=== PATIENT | female | born 1990 | race Caucasian/White ===

== ENCOUNTER 2023-06-01 10:38 | Outpatient (CLI) | payer OTHER, SELFPAY ==
--- NOTE | 2023-06-01 11:00 | US_ITS ---
Final Report Patient: SAUL PATEL Facility:?[facility] Patient ID:?[id number] Site Patient ID:?[id number]. Site :?1989 Study:?US OB Pelvis BFAS-06/01/2023 11:32:40 AM Ordering Physician:MELINDA MARTINEZ Final Report: INDICATION: Evaluate anatomy. COMPARISON: none TECHNIQUE: Real time dominguez scale imaging of the fetus was performed as well as color Doppler analysis of the umbilical vessels. FINDINGS: Sonographic imaging demonstrates a single living intrauterine gestation. Fetus demonstrates a regular cardiac rate of 144 beats per minute. Fetus has a variable position. The placenta lies anteriorly without evidence of placenta previa. Placental edge is 8.8 cm from the internal cervical os. Amniotic fluid volume appears normal. Single deepest vertical pocket: 4.1 cm. The cervix is closed and measures 4.8 cm in length. The composite ultrasound gestational age is calculated at 21 weeks 2 days with an estimated sonographic due date of 10/10/2023. The estimated weight is 432 grams which lies at the 91st %. The following biometric measurements were obtained: Biparietal diameter: 4.8 cm/20 weeks 3 day 44th% Head circumference: 18.9 cm/21 weeks 1 day 68th% Abdominal circumference: 17.0 cm/22 weeks 0 day 86th% Femur length: 3.5 cm/21 weeks 1 day 64th% The HC/AC ratio measures: 1.11 range (1.06-1.24) On anatomic survey, there is a normal appearance of the cerebral ventricles, cavum septi pellucidi, cisterna magna and cerebellum. The nose, lips, and facial profile appear normal. The cervical, thoracic and lumbar spine are well visualized and appear normal. There is a normal four-chamber heart view and the left and right ventricular outflow tracts appear normal. The diaphragm and stomach appear normal. The kidneys and bladder also appear normal. There is a normal three-vessel cord and there is an eccentric cord insertion site. The four extremities appear normal. IMPRESSION: Normal OB ultrasound exam with concordance of clinical and sonographic dating. No intrinsic abnormalities noted on anatomic survey. Dictated by Doug Lopez MD @ 06/01/2023 11:44:22 AM (Electronic Signature
== END 2023-06-01 10:39 | disposition home or self-care (01) ==
LOC: US 10:39
PROVIDERS: Visit Provider Advanced Practice Midwife
DX: Z34.92 Encounter for supervision of normal pregnancy, unspecified, second trimester (principal); Z3A.20 20 weeks gestation of pregnancy
CPT/HCPCS: 76805

== ENCOUNTER 2023-07-22 08:05 | Outpatient (CLI) | payer OTHER, SELFPAY | END 2023-07-22 08:06 | disposition home or self-care (01) | LOC: NFLDREF 07-23 07:18 | PROVIDERS: Visit Provider Advanced Practice Midwife | DX: Z34.91 Encounter for supervision of normal pregnancy, unspecified, first trimester (principal) | CPT/HCPCS: 86592; 86787; 86803 ==

== ENCOUNTER 2023-07-23 07:59 | Outpatient (CLI) | payer OTHER, SELFPAY | END 2023-07-23 08:00 | disposition home or self-care (01) | LOC: NFLDREF 07-24 08:26 | PROVIDERS: Visit Provider Advanced Practice Midwife | DX: O99.810 Abnormal glucose complicating pregnancy (principal) | CPT/HCPCS: 82951; 82952 ==

== ENCOUNTER 2023-09-16 11:17 | Outpatient (CLI) | payer OTHER, SELFPAY | END 2023-09-16 11:18 | disposition home or self-care (01) | LOC: NFLDREF 09-23 14:17 | PROVIDERS: Visit Provider Advanced Practice Midwife | DX: Z34.83 Encounter for supervision of other normal pregnancy, third trimester (principal) | CPT/HCPCS: 87081; 87653 ==

== ENCOUNTER 2023-10-22 07:25 | Inpatient (IN) | payer OTHER, SELFPAY ==
[2023-10-22] VITALS (14 sets, daily range): BP systolic 95–131; BP diastolic 54–87; PULSE 65–86; RESP 16–17; TEMP 36.4–37.1; O2SAT 94–96
--- OUTSIDE RECORDS SUMMARY | 2023-10-22 05:39 | XMS_ITS | Clinical Summary ---
Author Organization [facility] Address [place], [place] [address] Care Team Providers Care Accountant Manager Name Role Phone Adan Teague MD Primary Care Provider [phone] Allergies No known active allergies Medications Medication Sig Dispensed Refills Start Date End Date Status VIT CALC,IRON,FOLIC ( VITAMIN ORAL) Take 1 Tab by mouth. Active cholecalciferol (VITAMIN D3) 5,000 unit capsule Take 1 Capsule (5,000 units) by mouth once daily. 40 units = 1 mcg (5000 units = 125 mcg) 0 07/01/2021 Active Active Problems Problem Noted Date Diagnosed Date Obesity in 07/10/2021 Female infertility associated with anovulation 0 07/10/2021 High-risk in first trimester Overview: HIGH RISK: PCOS: conceived with ART, letrozole and IUI Early GCT 134 Hx of Shoulder Dystocia: ~15 seconds, resolved with suprapubic and Orestes Early GCT 134 Consider growth us Offer primary c/s Hx of macrosomal infant (9lb 14oz): A1c with NOB labs 5.5 early GCT 134 Pre- BMI 39 Weight gain 11-20lbs Early GCT 134 Level II US Growth US third trimester Supervision of res ulting from assisted reproductive technology, antepartum 07/09/2021 History of delivery of macrosomal 022 History of shoulder dystocia in prior 07/09/2021 PCOS (polycystic ovarian syndrome) 07/09/2021 Resolved Problems Problem Noted Date Diagnosed Date Resolved Date High risk due to a ssisted reproductive technology 07/09/2021 07/09/2021 (spontaneous vaginal delivery) 07/23/2018 07/09/2021 Supervision of normal 12/14/2017 07/08/2021 Overview: Provider: Adan Teague MD Last delivery had 9 lb 13 oz baby, short second stage and no tears. Induced at 42 weeks. A Rh Positive BOY FOB: Piter. Daughter: [place] (2) pain management: would like to avoid an epidural, but did have this with her last . NO consent signed. Circumcision: not planning Breastplanning: does not need pump. Planning on having a Armature [employer] (Ashley). control: unsure, didn't like paragard in the past. Planning more kids Right upper quadrant abdominal pain 11/01/2015 11/13/2017 Calculus of gallbladder 11/01/201511/28 Normal vaginal delivery 11/01/201510/28 Overview: 09/2015 Total bilirubin, elevated 11/01/2015 Elevated transaminase level 11/01/2015 11/13/2017 Elevated alkaline phosphatase level 11/01/2015 11/13/2017 Immunizations Name Administration Dates Next Due Hepatitis A (Peds) 06/23/2008,10/12/2007 Human Papilloma Virus Vaccine 06/23/2008, 008,10/12/2007 Influenza, IIV4 01/31/2019,12/14/2017 Meningococcal Vaccine (Menactra) 10/12/2007 Tdap 04/14/2018,10/12/2007 Family History Medical History Relation Name Comments Good Health Brother Hypertension Father Cancer Maternal Grandfather Suicide Attempts Maternal Grandmother Good Health Mother Suicide Attempts Paternal Grandfather Cancer-breast Paternal Grandmother Good Health Paternal Grandmother Good Health Sister defects No Family History Cancer-ovarian No Family History Chromosomal disorder No Family History Miscarriages / Stillbirths No Family History Preeclampsia No Family History Uterine cancer No Family History Relation Name Status Comments Brother Alive Father Alive Maternal Grandfather Maternal Grandmother Mother Alive Paternal Grandfather Paternal Grandmother Alive Sister Alive Social History Tobacco Use Types Packs/Day Years Used Date Smoking Tobacco: Never Smokeless Tobacco: Never Tobacco Cessation:Counseling Given: Yes Alcohol Use Standard Drinks/Week Comments No 0 (1 standard drink = 0.6 oz pur e alcohol) PHQ-2 Answer Date Recorded PHQ-2 TOTAL SCORE 0 07/01/2021 Social Connections Answer Date Recorded Frequency of Communication with Friends and Fami ly Not on file 03/30/2021 Financial Resource Strain Answer Date R ecorded Difficulty of Paying Living Expenses Not on file 03/30/2021 Difficulty of Paying Living Expenses Not on file 03/30/2021 Sex and Gender Information Value Date Recorded Sex Assigned at Not on file Gender Identity Not on file Sexual Orientation Not on file Obstetrics History Para Term AB IAB SAB Ectopic Multiple Livin g Live Births 3 2 2 1 1 Date Outcome GA Total Labor Labor//3rd Weight Sex Type Anes PTL Ellen A1 A5 Name Clin 2015 Term 42w 1d 4.45 kg (9 lb 13 oz) F VAGINA L BEAU Epidur al Livin g 8 8 Adrian w Penelope kenzie Knight ri, CNM Complications:Premature rupt ure of membranes Delivery Location:[facility] Comments:Transferred f [facility] for PROM at 42 weeks. Pit IOL, nitrous and epidural. Compound presentation of both hands at face. 2nd degree lac, repaired. QBL 406 2018 Term 41w 4d 0h 07m/0h 02m 4.48 kg (9 lb 14 oz) M VAGINA L BEAU None 8 9 [place] a Complications:Shoulder Dysto anshu Delivery Location:[facility] (UTD 1999 MB L&D TRIAGE) Comments:post dates IO L. 1 dose miso. No meds, SROM. 15 second shoulder dystocia, resolved with Orestes and suprapubic. Nuchal x1. QBL 200 Last Filed Vital Signs Vital Sign Reading Time Taken Comments Blood Pressure 122/81 07/01/2021 2:13 PM CDT Pulse 92 07/01/2021 2:13 PM CDT Temperature 37.2 ??C (99 ??F) 02/03/2019 9:15 AM SALES REPRESENTATIVE [employer] Respiratory Rate 20 02/03/2019 9:15 AM SALES REPRESENTATIVE [employer] Oxygen Saturation 98% 02/03/2019 9:15 AM SALES REPRESENTATIVE [employer] Inhaled Oxygen Concentration - - Weight 110.6 kg (243 lb 12.8 oz) 07/01/2021 2:13 PM CDT Height 166.9 cm (5' 5.71) 07/01/2021 2:13 PM CD T Body Mass Index 39.7 07/01/2021 2:13 PM CDT Plan of Treatment Health Maintenance Due Date Last Done Comments Pap test for age 21-65 12/14/2020 12/14/2017 BMI (ht and wt on same day) for age 18+ 07/01/2022 07/01/2021, 01/19/2020, 09/13/2018, Additional history exists Depression screening for age 12+ 07/01/2022 07/01/2021, 01/19/2020, 09/13/2018, Additional history exists COVID-19 vaccine series ( season) 2022 Influenza for age 9-49 11/29/2023 01/31/2019, 2017 Tetanus booster 04/14/2028 04/14/2018, 10/12/2007 Tdap Completed 04/14/2018, 10/12/2007 HIV for age 15-65 Completed 07/01/2021, 11/13/2017 Hepatitis C screening for age 18-79 Completed 07/01/2021 Pneumococcal series for age 6-64 Aged Out No longer eligible based on patient's age to complete this topic Procedures Procedure Name Priority Date/Time Associated Diagnosis Comments ANTI HIV 1/2 Routine 07/01/2021 4:32 PM CDT High-risk , first trimester ANTI HCV Routine 07/01/2021 4:32 PM CDT High-risk , first trimester SQL REPORT WRITER THIN PREP PAP SCREEN IMAGED Routine 12/14/2017 6:11 PM CDT Encounter for supervision of other normal in first trimester from Last 3 Months or Most Recently Relevant to Health Maintenance Results * ANTI HCV (07/01/2021 4:32 PM CDT) HEPATITIS C ANTIBODY Non-React leander Non-React leander 07/01/2021 10:44 PM CDT [facility] Comment:Antibodies to HCV no t detected; does not exclude the possibility of exposure to HCV. Blood BLOOD SPECIMEN / Unknown Venipuncture / Unknown 07/01/2021 4:32 PM CDT 07/01/2021 4:32 PM CDT Evita VICTORIA SEND OUTS Performing Organization Address City/[facility] Co de Phone Number [facility] [address] [place] [address], * ANTI HIV 1/2 (07/01/2021 4:32 PM CDT) [facility] HIV-1/HIV-2 ANTIBODY Non-Reacti ve Non-Reacti ve 07/01/2021 10:10 PM CDT [facility] Comment:HIV-1 p24 and HIV-1/ HIV-2 Ab not detected. Blood BLOOD SPECIMEN / Unknown Venipuncture / Unknown 07/01/2021 4:32 PM CDT 07/01/2021 4:32 PM CDT [employer] VICTORIA SEND OUTS Performing Organization Address [facility] Co de Phone Number [facility] [address] [place] [address], * SQL REPORT WRITER THIN PREP PAP SCREEN IMAGED (12/14/2017 6:11 PM CDT) [facility] Case Report Gynecologic Cytology Report ? Case: [id number] ? Authorizing Provider: ??Adan Teague MD ?Collected: ? 12/14/2017 1811 ? Ordering Location: ? [facility] Received: ?12/14/2017 1829 ? First Screen: ?Rose Espino ? Specimen: ?SQL REPORT WRITER ThinPrep Vial Screening, Cervical ? 12/25/2017 9:15 AM CDT [facility] INTERPRETATION/ RESULT NEGATIVE FOR INTRAEPITHELIAL LESION OR MALIGNANCY (NIL) (none) 12/25/2017 9:15 AM CDT [facility] IMEN ADEQUACY Satisfactory for evaluation Endocervical component present 12/25/2017 9:15 AM CDT [facility] HPV REQUEST HPV if ASCUS 12/25/2017 9:15 AM CDT [facility] Date of LMP 09/16/17 12/25/2017 9:15 AM CDT [facility] Last Pap Date 10/11/14 12/25/2017 9:15 AM CDT [facility] [employer] [facility] Last Pap Result NIL 8 9:15 AM CDT [facility] Abnormal Pap or Edison Bx in last 5 years No 12/25/2017 9:15 AM CDT [facility] Menstrual Status 12/25/2017 9:15 AM CDT [facility] Edison Bx Done Today No 12/25/2017 9:15 AM CDT [facility] Additional Information None given 12/25/2017 9:15 AM CDT [facility] Automated Review Successful 12/25/2017 9:15 AM CDT [facility] Comment:Specimen processed s uccessfully by automated call or contact centre operator device, ThinPrep Imaging System, [employer] Note The pap test is a screening technique, not a diagnostic procedure. ??It is used primarily to screen for squamous cancers and precursor lesions. ??Published studies have shown that it is subject to both false negative and false positive results. ??The pap test should not be used as the sole means to diagnose or exclude pre-malignant and malignant lesions. Cytology is screened and interpreted at [facility] - [address], [place] [address] and [facility] - [address]; [place] [address] and [facility] - [address]; [place] [address] and [facility] [address]; [place] [address] 12/25/2017 9:15 AM CDT [facility] Other (Cervical) Non-Blood / Unknown 12/14/2017 6:11 PM CDT 12/14/2017 6:29 PM CDT Adan Teague MD PATHOLOGY/CYTOLOGY Performing Organization Address City/State/[facility] Co de Phone Number [facility] [address] [place] [address], from Last 3 Months or Most Recently Relevant to Health Maintenance Advance Directives Documents on File Type Date Recorded Patient Room Inspector Expl anation Treatment Guidelines 08/03/2018 9:45 AM BIR TH PLAN * Full Code (Latest Code Status on File) Date Activated Date Inactivated Comments 07/23/2018 4:05 PM 07/24/2018 8:57 PM * Full Code Date Activated Date Inactivated Comments 11/03/2015 11:00 AM 11/03/2015 5:28 PM * Full Code Date Activated Date Inactivated Comments 11/02/2015 4:20 PM 11/03/2015 11:00 AM Question Answer Comments Code Status Discussion: Discussed * Full Code Date Activated Date Inactivated Comments 11/01/2015 9:26 PM 11/02/2015 4:20 PM Question Answer Comments Code Status Discussion: Discussed * Full Code Date Activated Date Inactivated Comments 10/15/2015 11:35 AM 10/16/2015 4:58 PM Care Teams Accountant Manager Relationship Specialty Start Date End Date Adan Teague MD [address] [place] [address] PCP - General Family Practice 11/13/17
--- OUTSIDE RECORDS SUMMARY | 2023-10-22 05:39 | XMS_ITS | Patient Health Record ---
Author Organization [facility] Address [address] [place] [address] Care Team Providers Care Log Chipper Name Role Phone Brenda Almeida Primary Care Provider Allergies No Known Allergies Reason For Referral No Information Medications Medication SIG (Take, Route, Frequency, Duration) Notes Start Date End Date Status VITEX Active Social History Tobacco Use: Social History Observation Description Date Details (start date - stop date) Never Smoker NA - NA Tobacco Use/Smoking Question Answer Notes Are you a nonsmoker Sexual History Question Answer Notes Had sex in the past 12 months (vaginal, oral, or anal)? Yes Problems Problem Type SNOMED Code ICD Code Onset Dates Problem Status W/U Status Risk Notes Problem 36005679 Irregular menstrual cycle (N92.6) Active confirmed Problem 865044904 PCOS (polycystic ovarian syndrome) (E28.2) Active confirmed Problem Menstrual disorder (505437321) Irregular menses (N92.6) Active confirmed Problem 782543655 Infertility associated with anovulation (N97.0) Active confirmed Problem 945008413 BMI 40.0-44.9, adult (Z68.41) Active confirmed Problem 15572190 Menstrual periods irregular (N92.6) Active confirmed Problem 149762337 BMI 38.0-38.9,adult (Z68.38) Active confirmed Problem 947146498 BMI 39.0-39.9,adult (Z68.39) Active confirmed Plan Of Treatment No Information Insurance Providers Payer Name Payer Address Payer Phone Subscriber Number Group Number Insured Name Patient Relationship to Insured Coverage Start Date Coverage End Date [facility] Commercial (Ins. Bill) [address] [address] [place], [place] [id number] [phone] [id number] Christine Castro Self - patient is the insured Medical (General) History Medical History History ICD Code Chicken Pox Pneumonia Gallbladder disease PCOS Surgical History Surgery Date(Month/Year) Gallbladder removal 2015
--- NOTE | 2023-10-22 06:12 | P.LDBA_ITS ---
Subjective History of Present Illness Date Seen: 10/22/23 Narrative: Patient is being admitted to Labor and Delivery for spontaneous labor. She is a 32 year old at 41.0 weeks gestation. Her full history and physical was dictated by Sindy Vergara CNM on 09/23/23. Please see this for details. Specific Issues/Plans Tx at 18 6/7 weeks from [facility] in [place] H&P 09/23/23 by Sindy Vergara CNM -Hx of shoulder dystocia w/ 2nd baby (<15 seconds), did not have with 3rd Not listed on transfer records from [facility] Records requested from [place]: Shoulder of <15 seconds noted on records but patient was in hands and knees, head delivered before provider arrived and she was turned over quick with McRobert and Suprapubic, and baby easily delivered. Pt feels it was less than 4 second. She does desire waterbirth Consult OB to discuss if waterbirth is an option due to subsequent hx without: Per Dr. Dalton 08/25/2023, waterbirth is an options as long as records of previous confirm homebirth/waterbirth without shoulder dystocia. This is noted on previous pregnancies records from [facility] stating homebirth, no complications. - Failed 1 hr GTT (149). 3 hour passed with 1 abnormal value OB Labs (03/05/2023): Blood type: A+, antibody screen negative. Hgb: 14.0 Platelets: 190 Rubella: Immune Varicella: not obtained at previous site RPR: non-reactive HBsAg: non-reactive Hep C: not obtained at previous site HIV: negative UC: negative GC/Chlamydia: negative/negative Genetic screening: not completed Pap records? Last one from [place] in 2018 Will bring pap records to next visit. IMAGINst trimester: 03/11/2023. SIUP measuring 9.0 weeks with BELL 10/14/2023. FHR 176. No adnexal masses seen. OB - Problem Based A/P Additional Plan (1) Post-dates : Status: Acute (2) Pain during labor: Status: Acute Plan Assessment:?? at 41.0 weeks gestation?? GBS negative? Patient is coping well with challenges of labor.?? Labor type: Spontaneous, Early labor? Category 1 FHR pattern.? complicated by: -Hx of shoulder dystocia w/ 2nd baby (<15 seconds), did not have with 3rd Not listed on transfer records from [facility] Records requested from [place]: Shoulder of <15 seconds noted on records but patient was in hands and knees, head delivered before provider arrived and she was turned over quick with McRobert and Suprapubic, and baby easily delivered. Pt feels it was less than 4 second. She does desire waterbirth Consult OB to discuss if waterbirth is an option due to subsequent hx without: Per Dr. Dalton 08/25/2023, waterbirth is an options as long as records of previous confirm homebirth/waterbirth without shoulder dystocia. This is noted on previous pregnancies records from [facility] stating homebirth, no complications. - Failed 1 hr GTT (149). 3 hour passed with 1 abnormal value Plan:?? * ?Admit to L & D? * IV access: NA * Monitoring per policy: intermittent? * Candidate for analgesia of choice.? Planning unmedicated for pain management * Desires waterbirth.? Consent signed and Hep C negative. Will move to waterbirth room if it becomes available. * Expectant management at this time ? * Patient encouraged to reposition and ambulate to promote physiologic labor and . * Anticipate ? Delivery/Labor/Induction Plan Plan: expectant management OB Exam Physical Exam Vital signs: Temp Pulse Resp BP Pulse Ox 97.5 F L 86 16 131/87 96 10/22/23 05:51 10/22/23 05:51 10/22/23 05:51 10/22/23 05:51 10/22/23 05:51 Narrative: Vitals Reviewed Constitutional:? Alert and oriented x3 HEENT:? Normocephalic, atraumatic Neck:? Supple Lungs:? Clear to auscultation bilaterally Heart:? Regular rate and rhythm, no murmur, rub or gallop Abdomen:? Soft, nontender, and gravid. Vertex by [facility], confirmed with cervical exam. Extremities:? No edema or erythema Cervix: 3 cm/[]%/[] station/vertex NST: 150bpm/moderate variability/+accelerations/ no decelerations/mild contractions Detailed Labor and Delivery Exam Patient Gravid: Yes
--- NOTE | 2023-10-22 08:00 | P.OBPN_ITS ---
Subjective Date Seen: 10/22/23 Narrative: Christine has been laboring in triage room waiting for the waterbirth room to become available. However she was moved to room 204 wanting hydrotherapy. After she was moved she requested a SVE. She was found to be 4/80/-1 with a bulging bag of water. We discussed the option of AROM and the risks/benefits. We reviewed that it can speed up labor and she would likely not be able to have a water as the room is currently full. She was ok with this and requested AROM. AROM with small amount of clear fluid. Her contractions since AROM have gradually increased in intensity. She is currently in throne position in bed but did encourage her to get up and change positions. She is supported by her mom and . Objective Vital Signs: Last Vital Signs Temp 98.7 F 10/22/23 07:34 Pulse 86 10/22/23 05:51 Resp 16 10/22/23 07:34 BP 131/87 10/22/23 05:51 Pulse Ox 96 10/22/23 05:51 Pelvic Exam Dilation (cm): 4 Effacement (%): 80 Station: -1 Contractions Monitor mode: External Contraction Frequency: 2-3 min Contraction pattern: Regular Contraction intensity: Moderate Assessment Assessment: early labor Station: -1 Amniotic Membrane Status: AROM Status: Category l Heart Rate Baseline: 140 Usp Variability: Moderate (6-25) Monitor Accelerations: Present Monitor Decelerations: None Plan Plan: Assessment:?? at 41.0 weeks gestation?? GBS negative? Patient is coping well with challenges of labor.?? Labor type: Spontaneous, Early labor? Category 1 FHR pattern.? complicated by: -Hx of shoulder dystocia w/ 2nd baby (<15 seconds), did not have with 3rd Not listed on transfer records from [facility] Records requested from [place]: Shoulder of <15 seconds noted on records but patient was in hands and knees, head delivered before provider arrived and she was turned over quick with McRobert and Suprapubic, and baby easily delivered. Pt feels it was less than 4 second. She does desire waterbirth Consult OB to discuss if waterbirth is an option due to subsequent hx without: Per Dr. Dalton 08/25/2023, waterbirth is an options as long as records of previous confirm homebirth/waterbirth without shoulder dystocia. This is noted on previous pregnancies records from [facility] stating homebirth, no complications. - Failed 1 hr GTT (149). 3 hour passed with 1 abnormal value Plan:?? * ?Admit to L & D? * IV access: NA * Monitoring per policy: continuous monitoring after AROM until reassuring strip is obtained. * Candidate for analgesia of choice.? Planning unmedicated for pain management * Desires waterbirth.? Consent signed and Hep C negative. Will move to waterbirth room if it becomes available. Hydrotherapy available for labor. * AROM performed. Expectant management?at this time. * Patient encouraged to reposition and ambulate to promote physiologic labor and . * Anticipate ?
--- NOTE | 2023-10-22 08:58 | W.PM.OBVAGDE ---
OB Procedure Vag Delivery Mother Details Mother Details: The patient is a 32 year-old, 4, Para 3, admitted on 10/22/23 at Days gestation. : 4 Para: 4 Weeks Gestation: 41.0 Admission Date: 10/22/23 Additional Details Amniotic Membrane Status: AROM Amniotic Membrane Rupture Date: 10/22/23 Amniotic Membrane Rupture Time: 07:42 Amniotic Membrane Fluid Description: Clear Analgesia/Anesthesia Type: None Waterbirth: No Pitcoin: Yes ([facility] only) Intrapartal Events: Labor Augmentation and Precipitous Labor <3 Hrs Delivery augmentation: rupture of membranes Labor Onset: 07:42 Complete: 08:30 (presumed with pushing) Pushin:30 Heart: heart tones during second stage were difficult to trace due to maternal position and rapid descent. FHR mostly hear in the 140's. Delivery Details Delivery Date: 10/22/23 Delivery Time: 08:37 Route of delivery: Infant Gender: Female Infant Viability: Alive; Heart Rate Present Position at Delivery: OA Delivery Details: Patient was admitted for labor post dates. She was scheduled for an IOL this morning but come in spontaneously shortly before her scheduled IOL time. She progressed rapidly with AROM augmentation. AROM noted at 0742 with clear fluid. Patient was presumed complete with pushing at 0830. Precipitous of a viable female at 0837 in hands and knees. Vertex delivered OA. No nuchal cord or shoulder. Body delivered easily and without incident. Infant passed to mothers abdomen with a vigorous cry. Cord was clamped and cut at > 5 minutes. APGARS were 8 at one minute and 9 at five minutes respectively. Mouth was bulb suctioned. Intact placenta with a 3 vessel cord delivered spontaneously at 0846. Fundus firm. An intact perineum was identified and no repairs were necessary. QBL 50 cc. Mother and baby stable; mother plans to breastfeed. Infant weight pending.? 1 Minute Interval Total Score: 8 5 Minute Interval Total Score: 9 Additional Details Shoulder Dystocia: No Placenta Delivery Time: 08:46 Placental Delivery Description: Spontaneous Procedure Done: Global Blood Loss: 50 Laceration: None Episiotomy Description: None Blood Loss Measurement Type: QBL Bakri Used: No Sponge/Need Count Correct: Yes Cord Vessel Description: 3 Vessels Event Summary Status: Mother and were stable after delivery. Disposition: floor
[2023-10-22] MEDS: OXYTOCIN 10 UNIT/ML INJ IM (09:04)
[2023-10-22] MEDS: IBUPROFEN 600 MG TABLET PO (17:49)
[2023-10-23 00:21] VITALS: BP 98/63; PULSE 81; RESP 16; TEMP 37.1
[2023-10-23] MEDS: IBUPROFEN 600 MG TABLET PO (04:30)
[2023-10-23 04:33] VITALS: BP 108/73; PULSE 81; RESP 16; TEMP 36.6
[2023-10-23 06:17] LABS: Hemoglobin* 11.7 gm/dL (12.0-16.0)
--- NOTE | 2023-10-23 07:22 | P.DS_ITS ---
DS: Providers Provider Date Seen: 10/23/23 Date of admission: 10/22/23 07:25 Primary care physician: Not a Local Provider Admitting Clinician: Noemy Vergara CNM Attending Physician on discharge: Clayton Xavier CNM Date of Discharge: 10/23/23 DS: Diagnosis Discharge Diagnosis (1) care and examination immediately after delivery: Status: Acute (2) Lactating mother: Status: Acute Exam Narrative: Exam Narrative: VSS, afebrile GENERAL APPEARANCE: ?normal affect, alert, no distress MOOD: ?appropriate HEENT: normocephalic, neck supple, full ROM CHEST: ?Symmetrical chest wall movement. ?Normal respiratory effort. ?Clear to auscultation HEART: ?regular rate and rhythm ABDOMEN: ?soft, non-tender. Uterine fundus is firm, at Umbilicus, Midline and is appropriate for the stage of recovery. ?Bowel sounds present. PERINEUM: ?mild edema of the perineum, intact. EXTREMITIES: ?normal and 1+ edema Const: Vital Signs, click to edit/add: Vital Signs - 24 hr 10/22/23 07:34 10/22/23 08:47 10/22/23 08:47 Temperature 98.7 F 98.0 F Pulse Rate 80 Pulse Rate [Pulse Oximeter] Respiratory Rate 16 16 Blood Pressure 126/69 Blood Pressure [Le ft Arm] [facility] 10/22/23 09:02 10/22/23 09:17 Temperature Pulse Rate 67 68 Pulse Rate [Pulse Oximeter] Respiratory Rate 16 Blood Pressure 111/63 107/59 L Blood Pressure [Le ft Arm] P[facility] 09:17 10/22/23 09:32 10/22/23 09:32 Temperature Pulse Rate 65 Pulse Rate [Pulse Oximeter] Respiratory Rate 16 16 Blood Pressure 102/61 Blood Pressure [Le ft Arm] Pulse [facility]xim[facility] 09:47 10/22/23 09:47 10/22/23 10:02 Temperature Pulse Rate 86 85 Pulse Rate [Pulse Oximeter] Respiratory Rate 16 Blood Pressure 99/69 95/54 L Blood Pressure [Le ft Arm] Pulse [facility]xim[facility] 10:02 10/22/23 10:21 10/22/23 10:21 Temperature Pulse Rate 77 Pulse Rate [Pulse Oximeter] Respiratory Rate 16 16 Blood Pressure 126/65 Blood Pressure [Le ft Arm] Pulse Oximetry Oxygen Delivery Me thod 10/22/23 10:33 10/22/23 10:33 10/22/23 10:47 Temperature Pulse Rate 77 86 Pulse Rate [Pulse Oximeter] Respiratory Rate 16 Blood Pressure 108/59 L 100/58 L Blood Pressure [Le ft Arm] Pulse Oximetry Oxygen Delivery Me thod 10/22/23 10:47 10/22/23 13:20 10/22/23 17:11 Temperature 98.2 F Pulse Rate Pulse Rate [Pulse Oximeter] 72 80 Respiratory Rate 16 16 16 Blood Pressure Blood Pressure [Le ft Arm] 99/59 L 105/71 Pulse Oximetry 94 96 Oxygen Delivery Me thod Room Air Room Air 10/22/23 20:34 10/23/23 00:21 10/23/23 04:33 Temperature 97.7 F 98.7 F 97.8 F Pulse Rate Pulse Rate [Pulse Oximeter] 81 81 81 Respiratory Rate 17 16 16 Blood Pressure Blood Pressure [Le ft Arm] 100/63 98/63 108/73 Pulse Oximetry Oxygen Delivery Me thod Room Air Documenting provider has reviewed patient's vital signs: yes OB - DS: Summary Hospital Course Hospital Course: Christine is a 32 y.o. who was admitted to [facility] for labor. ?She had an uncomplicated NVD.?The patient feels well. ?The pain is well controlled with current medications. ?She has no new complaints. ?She is breast feeding and reports things are going well.? the patient has done well.? Vitals have been stable.? She has remained afebrile.? Has a good appetite, is tolerating a general diet. ?She is voiding without difficulty.? She is passing gas and has not had a bowel movement.? She is ambulating and denies any dizziness.? Has Small amount of rubra lochia. ?She is undecided on her plan for prevention. Options were reviewed. Peripartum Data Infant delivery method: Vaginal Laceration description: None complications: none Gender: Female Infant Discharge Plan: Home Status at Discharge Functional status at discharge: independent ambulation Overall status at discharge: patient is progressing back to baseline Time Spent with Patient Time attestation: Total time spent providing and/or coordinating discharge services: Time spent: Less than 30 minutes Discharge Plan Discharge Disposition: Home, Self-Care Date of Admission: 10/22/23 07:25 Attending Provider on Discharge: Clayton Xavier Primary Care Provider: Provider,Not a Local Condition: Stable Anticipated Discharge Date/Time: 10/23/23 12:00 Discharge Medications: New acetaminophen 500 mg Tablet 1,000 mg PO Q6H PRNQty: 0 0RF docusate sodium 100 mg Capsule 100 mg PO DAILY Qty: 90 2RF ibuprofen 600 mg Tablet 600 mg PO Q6H PRNQty: 60 0RF Continued PNV #[id number] acid-dha 35 mg iron-5 mg iron-1 mg capsule 1 cap PO QDAY magnesium hydroxide 400 mg (170 mg magnesium) tablet,chewable 400 mg PO DAILY Discharge Orders: Discharge Order (Routine); Ordered 10/23/23 Ordered By: lCayton Xavier Patient Education: OB Over the Counter Medication Information, OB Vaginal/Breast Feeding Additional Instructions: Discharge instructions were reviewed with the patient including signs and symptoms of infection and home going medications Nothing vaginally for 6 weeks: no tampons or intercourse Off Work or School for 6 weeks Symptoms to report to doctor: * Bleeding that saturates more than one pad per hour * Passing clots larger than the size of a golf ball * Pain not relieved by prescribed medication * Fever above 100.4 degrees Fahrenheit * A foul vaginal odor * Difficulty in emotions, mood, and functions * Thoughts of hurting yourself and/or * Painful, reddened area in your breast * Any drainage, redness, or tenderness in your IV/epidural site * Severe headache that doesn't improve after taking medications * Changes in vision, including temporary loss of vision, blurred vision, and/or light sensitivity * Upper abdominal pain (usually under ribs on the right side) * Decrease in urination or painful, frequent urinating * Chest pain * Shortness of breath * Tenderness or pain with redness and/swelling in the calf(s) of your leg 2-week visit: discuss infant feeding concerns, review control options and screen for anxiety/depression. 6-week visit for an annual exam. consultation services are available to all mothers and babies for the first year after delivery.? To make an appointment, please call [phone]. Activity Level: Activity as Tolerated Discharge Diet: Regular Follow Up Appointments: Provider,Not a Local [Primary Care Provider] - [facility] [Provider Group] Forms: [employer] Info Instructions
[2023-10-23 07:28] VITALS: BP 104/66; PULSE 69; RESP 12; TEMP 36.4; O2SAT 96
== END 2023-10-23 10:46 | disposition home or self-care (01) | DRG 807 ==
LOC: OB OUT 07:30 → OB 07:30
PROVIDERS: Admitting Provider Advanced Practice Midwife; Visit Provider Advanced Practice Midwife
DX: O48.0 Post-term pregnancy (principal); Z37.0 Single live birth; Z3A.41 41 weeks gestation of pregnancy
CPT/HCPCS: 36415; 85018; 86592; A9270; J2590